=== PATIENT | male | born 1960 | race Caucasian/White ===

== ENCOUNTER → 2016-07-26 | Outpatient (CLI) | payer BC ==
[2016-07-26 11:49] LABS: Anion Gap 12 mmol/L; Blood Urea Nitrogen 17 mg/dL (9-20); Calcium 9.8 mg/dL (8.4-10.2); Carbon Dioxide 27 mmol/L (22-30); Chloride 100 mmol/L (98-107); Glucose 123 mg/dL (74-99); Non-African American GFR(MDRD) 59 (>60 ml/min/1.73 sqM); Potassium 4.8 mmol/L (3.5-5.1); Sodium 139 mmol/L (137-145)
== END | disposition home or self-care (01) ==
LOC: LABWHC1 10:45
PROVIDERS: ATTEND Urology
DX: N13.1 Hydronephrosis with ureteral stricture, not elsewhere classified (principal)
CPT/HCPCS: 36415; 80048

== ENCOUNTER → 2016-08-02 | Outpatient (CLI) | payer BC ==
[2016-08-02 17:56] LABS: Blood Urea Nitrogen 18 mg/dL (9-20); Non-African American GFR(MDRD) >60 (>60 ml/min/1.73 sqM)
--- NOTE | 2016-08-02 22:17 | CT ---
EXAMINATION TYPE: CT urogram wo/w con DATE OF EXAM: 08/02/2016 6:55 PM COMPARISON: 02/29/2016 HISTORY: 55-year-old male kinking stricture of ureter, recent left-sided stent removal, decreased uri ne flow. TECHNIQUE: Contiguous axial scanning of the abdomen and pelvis performed without and with IV Contrast , patient injected with 100 mL of Omnipaque 300. Delayed images through the kidneys and bladder were obtained. Coronal/sagittal reconstructions performed. 3-D reconstructions generated on a dedicated in dependent workstation. CT DLP: 2603.43 mGycm Automated exposure control for dose reduction was used. FINDINGS: The heart is upper limits of normal in size with trace anterior basilar pericardial effusion, similar prior. Aortic valvular calcifications again seen. Lung bases are clear without pleural effusion. Redemonstrated postsurgical changes of Shoshana fundoplication. No focal liver lesion or biliary ductal dilatation. Portal venous system is patent. Redemonstrated cholelithiasis with a 1.5 cm gallstone. Right adrenal gland, spleen with tiny hilar sp lenule, and pancreas appear within normal limits. The 2 cm left adrenal gland nodule shows density of around 0 Hounsfield units compatible with lipid rich adrenal adenoma, unchanged from prior. There is no nephrolithiasis on either side. Mild right-sided pelvocaliectasis is unchanged. The patient's left ureteral stent has been removed and there is no mild to moderate left-sided hydron ephrosis. There is symmetric uptake of contrast by both kidneys and there is slight delay in contrast from the left kidney. Suggestion of mild diffuse left-sided urothelial thickening along the collecti ng system and upper ureter probably due to some degree of chronic inflammation. No suspicious renal l esion and no suspicious filling defects within the collecting system or along the course of either ur eter. There is similar strandy density along the retroperitoneum probably on a post surgical or post therap y basis given the patient's previous history of testicular cancer. No mesenteric or retroperitoneal lymphadenopathy. [id number] atherosclerotic calcifications throughout the abdominal aorta with mild aneurysms of the right greater than left common iliac arteries are 1.9 and 1.7 cm, respectively. No dilated small bowel, free fluid, or free air. Normal appendix. Mild stool burden without pericolonic inflammatory change. There is a redundant sigm oid colon. Dependent contrast collecting within the bladder. No intraluminal filling defect seen along the poste rior half of the bladder prostate gland remains enlarged at 5.0 cm wide. Rectum appears normal. No ab normal fluid collection in the pelvis or pelvic lymphadenopathy seen. Bones: Mild degenerative changes at the hips. No osseous destructive process. IMPRESSION: 1. INTERVAL LEFT URETERAL STENT REMOVAL WITH SIMILAR MILD TO MODERATE DISTENTION OF THE LEFT RENAL CO LLECTING SYSTEM. THERE IS ONLY MINIMAL ASYMMETRIC DELAY IN EXCRETION OF CONTRAST FROM THE LEFT KIDNEY ARGUING AGAINST ANY SIGNIFICANT OBSTRUCTIVE UROPATHY. 2. SOME MINIMAL UROTHELIAL THICKENING INVOLVING THE LEFT RENAL COLLECTING SYSTEM AND UPPER URETER PRO BABLY DUE TO SOME CHRONIC INFLAMMATION. CORRELATE TO EXCLUDE UTI. 3. SHOSHANA FUNDOPLICATION, CHOLELITHIASIS, 2 CM LIPID RICH ADRENAL ADENOMA ON THE LEFT, MILD ANEURYSMS OF THE COMMON ILIAC ARTERIES MEASURING UP TO 1.9 CM, AND PROSTATOMEGALY (5.0 CM WIDE).
== END | disposition home or self-care (01) ==
LOC: RADCTMAIN 17:15
PROVIDERS: ATTEND Urology
DX: N32.89 Other specified disorders of bladder (principal); D35.02 Benign neoplasm of left adrenal gland; K80.20 Calculus of gallbladder without cholecystitis without obstruction; I72.3 Aneurysm of iliac artery; R93.422 Abnormal radiologic findings on diagnostic imaging of left kidney
CPT/HCPCS: 82565; 84520; 74178; 36415; 74400; Q9967

== ENCOUNTER → 2016-09-25 | Outpatient (CLI) | payer BC ==
--- NOTE | 2016-09-25 20:30 | US ---
EXAMINATION TYPE: US kidneys/renal and bladder DATE OF EXAM: 09/25/2016 3:32 PM COMPARISON: CT urogram 08/02/2016 CLINICAL HISTORY: 55-year-old male N13.5 Crossing vessel stricture of ureter. Post left sided stent r emoval; patient stated had radiation treatment for testicular CA in 1993 and was informed of potentia l renal fibrosis. TECHNIQUE: Multiple sonographic images of the kidneys and bladder were obtained. FINDINGS: Right Kidney: 13.2 x 7.5 x 5.9 cm without hydronephrosis. There is a 4 mm echogenic focus in the upp er pole that could represent a prominent vascular reflection or nonobstructive calculus. Left Kidney: 13.6 x 6.0 x 5.9 cm with mild hydronephrosis. Bladder: No gross abnormality. Both ureteral jets are visualized. Initial underdistention of the blad iris limits its evaluation. Post Void Residual Volume: 8.8 mL, within normal limits. IMPRESSION: 1. Mild left-sided hydronephrosis. Both ureteral jets are visualized. 2. No sonographic evidence of urinary retention.
== END | disposition home or self-care (01) ==
LOC: RADUSWWP 14:53
PROVIDERS: ATTEND Urology
DX: N13.30 Unspecified hydronephrosis (principal)
CPT/HCPCS: 76770

== ENCOUNTER → 2016-10-13 | Outpatient (CLI) | payer BC ==
--- NOTE | 2016-10-13 15:50 | NM ---
EXAMINATION TYPE: NM bone scan whole body DATE OF EXAM: 10/13/2016 COMPARISON: CT urogram 02 August 2016, CT abdomen pelvis 29 February 2016 HISTORY: Prostate carcinoma Delayed whole-body scanning was performed following the injection of 24.1 mCi Tc 99m MDP. Images acq uired 3 hours post injection. FINDINGS: No abnormal increased uptake to suggest metastatic disease. Soft tissue uptake is essentially normal. Mild uptake in the feet, shoulders and sternoclavicular joints is likely degenerative. Vague areas o f increased uptake at the posterior ninth and eighth ribs on the right compatible with old healed rib fractures. IMPRESSION: Metastatic disease is not evident.
== END | disposition home or self-care (01) ==
LOC: RADNMMAIN 10:52
PROVIDERS: ATTEND Urology
DX: C61 Malignant neoplasm of prostate (principal)
CPT/HCPCS: 78306; A9503

== ENCOUNTER 2017-09-06 11:10 | Day surgery (SDC) | payer BC ==
[2017-09-04 12:02] VITALS: BMI 32.3
[~2017-09-06 11:10] MED LIST: LACTATED RINGERS 1,000 ML IV SCH
[2017-09-06 12:18] VITALS: TEMP 98
[2017-09-06] MEDS ORDERED: LIDOCAINE 1% 20 ML VIAL (10MG/ML) FOR IV START INTRADERMA ONE (12:21)
[2017-09-06] MEDS ORDERED: LACTATED RINGERS 1,000 ML IV ONE (12:21)
[2017-09-06] MEDS ORDERED: PROPOFOL 10 MG/ML 20 ML VIAL IV ONE (13:14)
[2017-09-06] MEDS ORDERED: LIDOCAINE 1% INJ 10MG/ML (20 ML MDV) ONE (13:14)
--- NOTE | 2017-09-06 13:44 | P.PCN ---
Date of Procedure: 09/06/17 Procedure(s) Performed: Procedure: Esophagogastroduodenoscopy and biopsy. Preoperative diagnosis: History of Wright's esophagus S/P high-frequency ablation. Postoperative diagnosis: 1. S/P fundoplication, esophagus, otherwise, shows no evidence of esophagitis or Wright's esophagus. 2. No hiatal hernia. 3. No obvious gastritis, duodenitis or peptic ulcer disease. 4. Biopsies obtained from esophagus. Preparation and sedation: Was provided by anesthesia area Brief clinical history: The patient is a 56-year-old male who was evaluated in June 2015 because of history of Wright's esophagus. He had 2 prior fundoplication surgeries, and around 5 years ago he had high-frequency ablation at [facility]. He was advised to have a follow-up exam in around 3 years which was performed in June 2015 and showed no obvious hiatal hernia or esophagitis including any evidence of Wright's esophagus. He had mild gastritis. Biopsies obtained at that time from the duodenum, antrum and esophagus did not show any significant findings. The patient remains off acid suppressive treatment. He has history of retroperitoneal fibrosis and had urothelial stents placed/removed since his last endoscopy. The patient had heartburn for few days couple weeks ago which has since subsided and he reports occasional difficulty swallowing but no other alarm symptoms. Procedure: With the patient on his left lateral decubitus position and after informed consent and adequate sedation, I passed the Olympus-GIF 160 video upper endoscope through the cricopharyngeus down the esophagus. The esophagus appeared healthy with no obvious erosions or ulcers. There were no strictures. There was no evidence of Wright's esophagus. GE junction was around 41 cm from the incisors and there was no definite hiatal hernia. The endoscope was then passed into the stomach which was insufflated with air and inspected in detail including the retroflex view in the cardia. There was no mottling or erythema in the stomach and there were no ulcers or erosions. Pyloric channel, duodenal bulb, post bulbar area and descending duodenum appeared within normal limits. I obtained biopsies from the esophagus then the endoscope was withdrawn. Plan: The patient was reassured. Will await the biopsy results. I did not recommend further surveillance because of his history of Wright's esophagus and if he has recurrence of his symptoms, an upper endoscopy can be included with his screening colon exams in the future. He will follow up with you as planned.
[2017-09-06 13:48] VITALS: BP 122/81; PULSE 53; RESP 16
== END 2017-09-06 14:38 | disposition home or self-care (01) ==
LOC: ORWHC2ENDO 11:10
DX: Z09 Encounter for follow-up examination after completed treatment for conditions other than malignant neoplasm (principal); Z87.19 Personal history of other diseases of the digestive system; Z98.890 Other specified postprocedural states; R12 Heartburn; R13.10 Dysphagia, unspecified; I10 Essential (primary) hypertension; N40.0 Benign prostatic hyperplasia without lower urinary tract symptoms; E78.5 Hyperlipidemia, unspecified; Q23.1 Congenital insufficiency of aortic valve; E07.9 Disorder of thyroid, unspecified; Z79.890 Hormone replacement therapy; Z79.899 Other long term (current) drug therapy; Z91.030 Bee allergy status
CPT/HCPCS: 88305; 43239; J2001; J2704

== ENCOUNTER → 2019-04-01 | Outpatient (CLI) | payer BC ==
--- NOTE | 2019-04-01 13:02 | CONS ---
CONSULTATION REASON FOR CONSULTATION: Consultation note for sleep apnea. A 58-year-old male patient coming in for re-evaluation regarding obstructive sleep apnea. The patient was diagnosed having KAR through a sleep center in [place] through [facility]. At that time, he was offered CPAP therapy and he used it for a year and subsequently quit the treatment and he has been on no treatment since. For now he is having loud snoring which is a major concern for him and his girlfriend. He has been told also to quit breathing in the middle of the night. He goes to bed around midnight and wakes up between 6 and 7 a.m. in the morning. He averages around 6 to 7 hours of sleep. He wakes up on and off around 2 to 4 times in the middle of the night. Over the past 10 years, there has been no significant weight gain. He watches TV in the bedroom. Sleeps on his side. No sleep paralysis. No hallucinations or cataplexy. PAST MEDICAL HISTORY: 1. Obstructive sleep apnea. Details are not available. The patient was offered CPAP therapy and used it for a year and then quit. 2. Hypertension. 3. Hyperlipidemia. 4. Hypothyroidism. 5. History of bicuspid aortic valve and aortic valve aneurysm, post repair of the aortic root and aortic valve replacement. 6. History of prostatectomy for prostate cancer. 7. History of orchiectomy for testicular cancer on the left. SURGICAL HISTORY: Surgical history includes left orchiectomy, fundoplication, tonsillectomy, prostatectomy, aortic valve replacement and repair of an aortic root back in 2018. SOCIAL HISTORY: The patient is a nonsmoker. No history of alcohol. No history of IV drugs. ALLERGIES: Allergies are to BEE STINGS. MEDICATIONS: Medications include levothyroxine 25 mcg p.o. q. day, metoprolol 25 mg p.o. q. day, lisinopril 5 mg p.o. q. day, pravastatin 40 mg p.o. q. day. REVIEW OF SYSTEMS: Fourteen-point review of system was done. Positive findings are mentioned in history of present illness. No sleep paralysis. No hallucinations. No cataplexy. No insomnia. No choking or gasping sensation. No grinding of the teeth. No sleepwalking. No nighttime heartburn, chest pain, shortness of breath. No anxiety, no depression. No difficulty with memory or concentration. He falls asleep during the day because of feeling fatigued and sleepy. PHYSICAL EXAMINATION: VITAL SIGNS: BP is 123/73, pulse is 70, respirations 16, temperature 97, saturation 97% on room air. Height is 5 feet 10 inches, weight is 225. Neck size is 18 inches. GENERAL APPEARANCE: Calm, comfortable. No acute distress. HEAD: Atraumatic, normocephalic. NECK: Supple. No JVD. No goiter or neck masses. Mallampati class IV. LUNGS: Clear to auscultation. HEART: Heart sounds are regular rate and rhythm. Normal S1, S2. No S3, S4. No murmurs. ABDOMEN: Soft, nontender. No organomegaly. EXTREMITIES: No edema. No cyanosis or clubbing. NEUROLOGIC: Awake and alert. There are no focal neurological deficits. PSYCHIATRIC: Negative for anxiety or depression. IMPRESSION: 1. Obstructive sleep apnea. The patient has symptomatic obstructive sleep apnea and is presenting for a re-evaluation. The sleep study was done back in 2011 through [facility] in [place] and the results are not available. He treated himself with CPAP briefly and subsequently quit. He is symptomatic and he is asking a re-evaluation for now. 2. History of aortic valve replacement for bicuspid aortic valve. 3. History of aortic root repair for aneurysm. 4. Hypothyroidism. 5. Hyperlipidemia. 6. Hypertension. 7. History of prostate cancer. 8. History of testicular cancer. PLAN: Proceed with a screening polysomnogram to re-evaluate the presence and severity of sleep apnea. Further recommendations are to follow based on the results. MMODL / IJN: [id number] /
== END | disposition home or self-care (01) ==
LOC: SLEEP 11:05
PROVIDERS: ATTEND Internal Medicine Critical Care Medicine
DX: G47.33 Obstructive sleep apnea (adult) (pediatric) (principal); E03.9 Hypothyroidism, unspecified; E78.5 Hyperlipidemia, unspecified; I10 Essential (primary) hypertension; Z85.46 Personal history of malignant neoplasm of prostate; Z85.47 Personal history of malignant neoplasm of testis; Z86.79 Personal history of other diseases of the circulatory system; Z79.899 Other long term (current) drug therapy; Z91.030 Bee allergy status
CPT/HCPCS: 99211

== ENCOUNTER → 2019-07-08 | Outpatient (CLI) | payer BC | END | disposition home or self-care (01) | LOC: SLEEP 14:16 | PROVIDERS: ATTEND Internal Medicine Critical Care Medicine | DX: G47.33 Obstructive sleep apnea (adult) (pediatric) (principal); Z53.9 Procedure and treatment not carried out, unspecified reason ==

== ENCOUNTER → 2020-10-14 | Outpatient (CLI) | payer BC ==
--- NOTE | 2020-10-14 11:01 | XR ---
EXAMINATION TYPE: XR ankle limited RT DATE OF EXAM: 10/14/2020 CLINICAL HISTORY: Lateral pain for 2 weeks. TECHNIQUE: Frontal and lateral images of the right ankle are obtained. COMPARISON: None. FINDINGS: There is no acute fracture/dislocation evident in the right ankle. The ankle mortise appe ars within normal limits. Mild soft tissue swelling over lateral malleolus. IMPRESSION: As above.
== END | disposition home or self-care (01) ==
LOC: RADXRMAIN 10:34
PROVIDERS: ATTEND Internal Medicine
DX: M25.471 Effusion, right ankle (principal)

== ENCOUNTER → 2020-10-19 | Outpatient (CLI) | payer BC ==
--- NOTE | 2020-10-19 17:56 | PN ---
PROGRESS NOTE Homero Doherty is a 59-year-old male patient coming in for annual check regarding obstructive sleep apnea. His last evaluation was done in 2019. He has a case of severe obstructive sleep apnea with an AHI of 33 and currently is on CPAP pressure of 11 cm of water. He has recently moved to [facility] and he has left town. He drove in 3 hours for this visitation. In general, he is doing well. He is awake and alert. He does not fall asleep while driving. He is using his CPAP every night. He is averaging around 7.1 hour of CPAP use per night. He has used S0-Clean system. AHI is down to 0.9. Leak is at 19 L and the patient is using a Dream Wear gel pillow. His treatment has been successful. No other new onset medical problems or comorbidities. He has hypothyroidism, hypertension, hyperlipidemia. His BP is under good control. REVIEW OF SYSTEMS: Fourteen-point review of system was done. Positive findings are mentioned in history of present illness. PHYSICAL EXAMINATION: BP is 136/89, pulse 54, respirations 20, temperature 97.6, saturation 98% on room air. BMI 33.2. [place] score is at 6. Weight is 235. GENERAL APPEARANCE: Calm, comfortable. HEAD: Atraumatic, normocephalic. NECK: Supple. There is no JVD. No goiter or neck masses. Mallampati class 4. LUNGS: Clear to auscultation. HEART: Heart sounds are regular rate and rhythm. Normal S1, S2. No S3, S4. No murmurs. ABDOMEN: Soft, nontender. No organomegaly. EXTREMITIES: No edema. No cyanosis or clubbing. NEUROLOGIC: Awake and alert. There is no focal neurological deficits. IMPRESSION: 1. Severe obstructive sleep apnea, AHI of 33, currently on CPAP pressure of 11. 2. Hypersomnia, recovered. [place] score is down to 6. 3. Hypothyroidism. 4. Hypertension. 5. Hyperlipidemia. PLAN: 1. Continue Dream gel pillow and offer Dream Wear under the nose as an alternative mask. 2. Refill the supplies thru [employer]. 3. Keep same pressure setting and see me back as needed. MMODL / IJN: [id number] /
== END ==
LOC: SLEEP 13:19
PROVIDERS: ATTEND Internal Medicine Critical Care Medicine
DX: G47.33 Obstructive sleep apnea (adult) (pediatric) (principal); E03.9 Hypothyroidism, unspecified; E78.5 Hyperlipidemia, unspecified; I10 Essential (primary) hypertension; Z99.81 Dependence on supplemental oxygen; Z91.030 Bee allergy status